=== PATIENT | male | born 1960 | race Caucasian/White ===

== ENCOUNTER 2020-12-02 06:12 | Day surgery (SDC) | payer OTHER, MEDICAID ==
[~2020-12-02] VITALS: Ht 170.2 cm; Wt 93.9 kg
[~2020-12-02 06:12] MED LIST: ASPI1TAB20 PO; GABA300C10 PO; METF-370 PO; METO25TA5 PO; OXYC325T14 PO; ROSU1TAB13 PO
[2020-12-02] MEDS ORDERED: LIDOCAINE 2% JELLY 11ml (GLYDO) ONE (06:52)
[2020-12-02] MEDS ORDERED: ceFAZolin 1GM/50ML 50 ML IV ONE (07:05)
[2020-12-02] MEDS ORDERED: SUCCINYLCHOLINE CHLORIDE 20 MG/ML 10ML VIAL IV ONE (07:30)
[2020-12-02] MEDS ORDERED: MIDAZOLAM HCL 2MG/2ML 2ml VIAL (1mg/ml) ONE (07:33)
[2020-12-02] MEDS ORDERED: fentaNYL CITRATE 100 MCG/2 ML VL ONE (07:33)
[2020-12-02] MEDS ORDERED: PHENYLEPHRINE HCL 10 MG/ML VL ONE (08:13)
[2020-12-02] MEDS ORDERED: LIDOCAINE 2% (LOCAL ANESTH.) PF 5ml SDV ONE (08:13)
[2020-12-02] MEDS ORDERED: ePHEDrine SULFATE 50 MG/ML AMP ONE (08:13)
[2020-12-02] MEDS ORDERED: ONDANSETRON HCL 4 MG/2 ML VIAL ONE (08:13)
[2020-12-02] MEDS ORDERED: PROPOFOL 10 MG/ML 20 ML IV ONE (08:13)
[2020-12-02] MEDS ORDERED: HYDROmorphone HCL 2 MG/ML VL IV PRN (08:30)
[2020-12-02] MEDS ORDERED: ONDANSETRON HCL 4 MG/2 ML VIAL IV PRN (08:30)
[2020-12-02 09:10] VITALS: BP 140/81
== END 2020-12-02 09:10 | disposition home or self-care (01) ==
LOC: SUR 06:12
PROVIDERS: ATTEND Urology
DX: N35.919 Unspecified urethral stricture, male, unspecified site (principal); E78.00 Pure hypercholesterolemia, unspecified; E11.9 Type 2 diabetes mellitus without complications; I10 Essential (primary) hypertension; E11.40 Type 2 diabetes mellitus with diabetic neuropathy, unspecified; I25.2 Old myocardial infarction; F17.200 Nicotine dependence, unspecified, uncomplicated; Z20.822 Contact with and (suspected) exposure to COVID-19; Z98.890 Other specified postprocedural states; Z68.32 Body mass index [BMI] 32.0-32.9, adult
CPT/HCPCS: 52276; 82962; J0330; J0690; J1170; J2001; J2250; J2370; J2405; J2704; J3010; U0003

== ENCOUNTER 2020-12-02 17:10 | Emergency (ER) | payer OTHER, MEDICAID ==
[~2020-12-02] VITALS: Ht 170.2 cm; Wt 93.9 kg
[~2020-12-02 17:10] MED LIST changes: +ASPI-231 PO; -ASPI1TAB20 PO
[2020-12-02 17:13] VITALS: BP 137/92
[2020-12-02] MEDS ORDERED: KETOROLAC TROMETH 60MG/2ML VIAL IM ONE (19:00)
== END 2020-12-02 19:40 | disposition home or self-care (01) ==
LOC: ER 17:10
DX: N99.114 Postprocedural urethral stricture, male, unspecified (principal)
CPT/HCPCS: 96372; 99283; J1885

== ENCOUNTER → 2022-06-13 | Outpatient (CLI) | payer OTHER, MEDICAID ==
[~2022-06-13] VITALS: Ht 170.2 cm; Wt 97.5 kg
[~2022-06-13] MED LIST changes: -ASPI-231 PO; +ASPI1TAB20 PO; +ROSU1TAB15 PO
== END | disposition home or self-care (01) ==
LOC: LAB 14:40 → EDSTATUS 06-15 13:30
PROVIDERS: ATTEND Urology
DX: Z20.822 Contact with and (suspected) exposure to COVID-19 (principal)

== ENCOUNTER → 2022-09-07 | Day surgery (SDC) | payer OTHER ==
[~2022-09-07] VITALS: Ht 172.7 cm; Wt 98.4 kg
[~2022-09-07] MED LIST changes: -ASPI1TAB20 PO; +BUPIVACAINE 0.25% INJ 50ML VIAL ONE; +DexAMETHasone SOD PHOS 10MG/1ML VIAL INJ ONE; +LABETALOL HCL 5 MG/ML 4ML SYRINGE IV PRN; +LIDOCAINE 2% JELLY 11ml (GLYDO) ONE; +LIDOCAINE W/ EPINEPHRINE 2% INJ 20ML VIAL ONE; +MEPERIDINE HCL (50 MG/ML) 1 ML VIAL ONE; +MIDAZOLAM HCL 2MG/2ML 2ml VIAL (1mg/ml) IV PRN; +MIDAZOLAM HCL 2MG/2ML 2ml VIAL (1mg/ml) ONE; +MORPHINE SULFATE 4 MG/ML SYR/VIAL IV PRN; +ONDANSETRON HCL 4 MG/2 ML VIAL IV PRN; -ROSU1TAB13 PO; +ceFAZolin 1GM VL ONE; +ePHEDrine SULFATE 50 MG/ML AMP IV PRN; +fentaNYL CITRATE 100 MCG/2 ML VL ONE; +fentaNYL CITRATE 5 ML ONE
[2022-09-07] MEDS: HYDROmorphone HCL 2 MG/ML VL/or syr IV PRN ×3 (10:52→11:15)
[2022-09-07 12:10] VITALS: BP 146/84
== END | disposition home or self-care (01) ==
LOC: SUR 07:45
PROVIDERS: ATTEND Urology
DX: N52.31 Erectile dysfunction following radical prostatectomy (principal); I10 Essential (primary) hypertension; E78.5 Hyperlipidemia, unspecified; E11.9 Type 2 diabetes mellitus without complications; Z79.84 Long term (current) use of oral hypoglycemic drugs; Z87.891 Personal history of nicotine dependence; Z88.5 Allergy status to narcotic agent; Z79.899 Other long term (current) drug therapy; Z98.890 Other specified postprocedural states; Z20.822 Contact with and (suspected) exposure to COVID-19
CPT/HCPCS: 54401; 82962; C1813; J0690; J1100; J1170; J2175; J2250; J3010; J3490; U0003

== ENCOUNTER 2022-09-29 12:52 | Inpatient (IN) | payer OTHER, MEDICAID ==
[~2022-09-29] VITALS: Ht 170.2 cm; Wt 97.5 kg
[~2022-09-29 12:52] MED LIST changes: -BUPIVACAINE 0.25% INJ 50ML VIAL ONE; -DexAMETHasone SOD PHOS 10MG/1ML VIAL INJ ONE; -LABETALOL HCL 5 MG/ML 4ML SYRINGE IV PRN; -LIDOCAINE 2% JELLY 11ml (GLYDO) ONE; -LIDOCAINE W/ EPINEPHRINE 2% INJ 20ML VIAL ONE; -MEPERIDINE HCL (50 MG/ML) 1 ML VIAL ONE; -MIDAZOLAM HCL 2MG/2ML 2ml VIAL (1mg/ml) IV PRN; -MIDAZOLAM HCL 2MG/2ML 2ml VIAL (1mg/ml) ONE; -MORPHINE SULFATE 4 MG/ML SYR/VIAL IV PRN; -ONDANSETRON HCL 4 MG/2 ML VIAL IV PRN; -ceFAZolin 1GM VL ONE; -ePHEDrine SULFATE 50 MG/ML AMP IV PRN; -fentaNYL CITRATE 100 MCG/2 ML VL ONE; -fentaNYL CITRATE 5 ML ONE
[2022-09-29 13:58] LABS: Basophils # (auto) 0.1 10 ^3/uL (0-0.2); Basophils % (auto) 0.8 % (0.0-2.0); Eosinophils # (auto) 0.1 10 ^3/uL (0-0.8); Eosinophils % (auto) 1.3 % (0.0-7.0); Hematocrit 42.1 % (41.0-53.0); Hemoglobin 14.4 g/dL (13.5-17.5); Lymphocytes # (auto) 0.8 10 ^3/uL (0.4-5.4); Mean Corpuscular Hemoglobin 29.6 pg (28.0-32.0); Mean Corpuscular Hgb Conc. 34.2 g/dL (32.0-36.0); Mean Corpuscular Volume 86.7 fL (80.0-100.0); Monocytes # (auto) 0.5 10 ^3/uL (0-1.3); Monocytes % (auto) 6.5 % (0.0-12.0); Neutrophils # (auto) 6.9 10 ^3/uL (1.6-8.6); Neutrophils % (auto) 82.4 % (37.0-80.0); Red Blood Cells 4.86 10^6/uL (4.5-5.90); Red Cell Distribution Width 13.3 % (11.8-14.3); White Blood Cell 8.4 10^3/uL (4.4-10.8)
[2022-09-29 14:29] LABS: Albumin 3.2 g/dL (3.4-5.0); Potassium 4.1 mmol/L (3.5-5.1)
[2022-09-29 14:32] LABS: BUN/Creatinine Ratio 11.4; Bilirubin, Total 0.6 mg/dL (0.2-1.0); Total Protein 7.3 g/dL (6.4-8.2)
[2022-09-29] MEDS ORDERED: LIDOCAINE W/ EPINEPHRINE 2% INJ 20ML VIAL ONE (15:44)
[2022-09-29] MEDS ORDERED: LIDOCAINE 1%HCL (LOCAL ANESTH) 10 ML MDV ONE (15:44)
[2022-09-29] MEDS ORDERED: ceFAZolin 1GM VL ONE (15:45)
[2022-09-29] MEDS ORDERED: DexAMETHasone SOD PHOS 10MG/1ML VIAL INJ ONE (15:47)
[2022-09-29] MEDS ORDERED: fentaNYL CITRATE 100 MCG/2 ML VL ONE (15:47)
[2022-09-29] MEDS ORDERED: MEPERIDINE HCL (50 MG/ML) 1 ML VIAL ONE (15:47)
[2022-09-29] MEDS ORDERED: PROPOFOL 10 MG/ML 20 ML IV ONE (15:47)
[2022-09-29] MEDS ORDERED: MIDAZOLAM HCL 2MG/2ML 2ml VIAL (1mg/ml) ONE (15:47)
[2022-09-29] MEDS ORDERED: LABETALOL HCL 5 MG/ML 4ML SYRINGE IV PRN (16:15)
[2022-09-29] MEDS ORDERED: HYDROmorphone HCL 2 MG/ML VL/or syr IV PRN (16:15)
[2022-09-29] MEDS ORDERED: ePHEDrine SULFATE 50 MG/ML AMP IV PRN (16:15)
[2022-09-29] MEDS ORDERED: hydrALAZINE HCL 20 MG/ML VL IV PRN (16:15)
[2022-09-29] MEDS ORDERED: ONDANSETRON HCL 4 MG/2 ML VIAL IV PRN (16:15)
[2022-09-29] MEDS ORDERED: MIDAZOLAM HCL 2MG/2ML 2ml VIAL (1mg/ml) IV PRN (16:15)
[2022-09-29] MEDS ORDERED: ACCU-CHEK COMFORT CURVE STRIP VI ONE (16:15)
[2022-09-29] MEDS ORDERED: ceFAZolin 1GM/50ML 100 ML IV ONE (16:17)
[2022-09-29] MEDS ORDERED: MORPHINE SULFATE 4 MG/ML SYR/VIAL IV PRN (16:30)
[2022-09-29] MEDS ORDERED: NEOMYCIN-BACITRACIN-POLYM 15GM TOP OINT TOP ONE (17:14)
[2022-09-29] MEDS ORDERED: PIPERACILLIN-TAZOB 3.375GM 100 ML IV ONE (17:45)
[2022-09-29] MEDS ORDERED: MORPHINE SULFATE INJ 2 MG/ml SYRG IV PRN (17:45)
[2022-09-29] MEDS ORDERED: NITROGLYCERIN 0.4 MG SL TAB SL PRN (17:45)
[2022-09-29] MEDS ORDERED: ALBUTEROL MEDNEB 2.5 mg/3ml NEB ONE (17:52)
[2022-09-29] MEDS ORDERED: ALBUTEROL SULF 2.5 MG/0.5ML(0.5%) NEB SOLN NEB ONE (18:00)
[2022-09-29] MEDS ORDERED: HYDROmorphone HCL 2 MG/ML VL/or syr IV ONE ×2 (18:15→18:25)
[2022-09-29] MEDS ORDERED: TAMS0.4C36 PO (21:05)
[2022-09-29] MEDS ORDERED: ASPI-325 PO (21:05)
[2022-09-29 22:00] VITALS: BP 163/91
[2022-09-30] VITALS (7 sets, daily range): BP systolic 100–145; BP diastolic 71–80
[2022-09-30] MEDS ORDERED: hydrALAZINE HCL 20 MG/ML VL IV PRN (01:15)
[2022-09-30] MEDS: MORPHINE SULFATE INJ 2 MG/ml SYRG IV PRN ×3 (01:20→13:45)
[2022-09-30] MEDS: HYDROcodone-ACET 5/325MG TAB PO PRN ×4 (03:11→21:48)
[2022-09-30] MEDS: METOPROLOL TARTRATE 25 MG TAB PO SCH ×2 (09:29→21:48)
[2022-09-30] MEDS: DOXYCYCLINE 100MG/250ML 250 ML IV SCH ×2 (13:44→21:49)
[2022-10-01] VITALS (8 sets, daily range): BP systolic 128–143; BP diastolic 79–84
[2022-10-01] MEDS: HYDROcodone-ACET 5/325MG TAB PO PRN ×2 (03:29→20:57)
[2022-10-01] MEDS ORDERED: MORPHINE SULFATE INJ 2 MG/ml SYRG IV ONE (05:00)
[2022-10-01] MEDS ORDERED: ALBUTEROL SULF 2.5 MG/0.5ML(0.5%) NEB SOLN NEB PRN (05:00)
[2022-10-01 05:37] LABS: Urine Bacteria MOD /hpf (None Seen); Urine Blood TRACE /uL (Negative); Urine Hyaline Cast FEW /lpf (0 - 2); Urine Mucus FEW (None Seen); Urine Specific Gravity 1.014 (1.001-1.035); Urine WBC 9 /hpf (0 - 3)
[2022-10-01] MEDS: DOXYCYCLINE 100MG/250ML 250 ML IV SCH ×2 (09:24→22:01)
[2022-10-01] MEDS: METOPROLOL TARTRATE 25 MG TAB PO SCH ×2 (09:25→21:55)
[2022-10-01] MEDS ORDERED: MORPHINE SULFATE 4 MG/ML SYR/VIAL IV PRN (12:45)
[2022-10-02 09:19] VITALS: BP 115/75
[2022-10-02] MEDS: DOXYCYCLINE 100MG/250ML 250 ML IV SCH (09:30)
[2022-10-02] MEDS: METOPROLOL TARTRATE 25 MG TAB PO SCH (09:30)
[2022-10-02 09:50] LABS: Hepatitis B Surface Antibody Negative (Negative)
[2022-10-02] MEDS ORDERED: levoFLOXacin 750MG 150 ML IV SCH (12:00)
[2022-10-02] MEDS ORDERED: CEPH500C PO ×2 (12:23)
[2022-10-02] MEDS ORDERED: HYDR-4902 PO (12:23)
[2022-10-02 12:35] VITALS: BP 140/75
[2022-10-02] MEDS ORDERED: LEVO750T8 PO (13:11)
[2022-10-02 13:33] LABS: Hepatitis A Ab IgM Negative
[2022-10-02 13:49] VITALS: BP 140/75
== END 2022-10-02 15:02 | disposition home or self-care (01) | DRG 728 ==
LOC: ER 12:52 → OVERFLOW 17:47 → WEST WING 20:10
PROVIDERS: ADMIT Anesthesiology; ATTEND Family Medicine
PROC: 0V9500Z Drainage of Scrotum with Drainage Device, Open Approach (ICD-10-PCS; principal; 2022-09-29 16:22)
DX: N49.2 Inflammatory disorders of scrotum (principal); E11.9 Type 2 diabetes mellitus without complications; E78.00 Pure hypercholesterolemia, unspecified; I10 Essential (primary) hypertension; Z90.79 Acquired absence of other genital organ(s); Z20.822 Contact with and (suspected) exposure to COVID-19; Z79.84 Long term (current) use of oral hypoglycemic drugs; B96.5 Pseudomonas (aeruginosa) (mallei) (pseudomallei) as the cause of diseases classified elsewhere
CPT/HCPCS: 36415; 71045; 76870; 80053; 81001; 82962; 83036; 85025; 86706; 86709; 87040; 87070; 87075; 87077; 87086; 87186; 87205; 87426; 94640; 96374; 96376; G0378; J0690; J1100; J1956; J2001; J2250; J2543; J2704; J3490

== ENCOUNTER 2022-10-23 16:34 | Observation (INO) | payer OTHER, MEDICAID ==
[~2022-10-23] VITALS: Ht 172.7 cm; Wt 94.1 kg
[~2022-10-23 16:34] MED LIST changes: +ASPI-325 PO; +HYDR-4902 PO; +LEVO750T8 PO; +TAMS0.4C36 PO
[2022-10-23 18:49] LABS: Basophils # (auto) 0.1 10 ^3/uL (0-0.2); Basophils % (auto) 1.5 % (0.0-2.0); Eosinophils # (auto) 0.3 10 ^3/uL (0-0.8); Eosinophils % (auto) 5.8 % (0.0-7.0); Hematocrit 42.6 % (41.0-53.0); Hemoglobin 14.3 g/dL (13.5-17.5); Lymphocytes # (auto) 1.3 10 ^3/uL (0.4-5.4); Lymphocytes % (auto) 25.5 % (10.0-50.0); Mean Corpuscular Hemoglobin 29.1 pg (28.0-32.0); Mean Corpuscular Hgb Conc. 33.7 g/dL (32.0-36.0); Mean Corpuscular Volume 86.4 fL (80.0-100.0); Monocytes # (auto) 0.5 10 ^3/uL (0-1.3); Monocytes % (auto) 10.7 % (0.0-12.0); Neutrophils # (auto) 2.8 10 ^3/uL (1.6-8.6); Neutrophils % (auto) 56.5 % (37.0-80.0); Nucleated Red Blood Cells % 0.1 %; Red Blood Cells 4.93 10^6/uL (4.5-5.90); Red Cell Distribution Width 13.7 % (11.8-14.3)
[2022-10-23 19:03] LABS: INR 1.03 (0.9-1.15)
[2022-10-23] MEDS ORDERED: fentaNYL CITRATE 100 MCG/2 ML VL ONE (19:11)
[2022-10-23] MEDS ORDERED: LIDOCAINE 2% (LOCAL ANESTH.) PF 5ml SDV ONE (19:12)
[2022-10-23] MEDS ORDERED: ONDANSETRON HCL 4 MG/2 ML VIAL ONE (19:12)
[2022-10-23] MEDS ORDERED: MIDAZOLAM HCL 2MG/2ML 2ml VIAL (1mg/ml) ONE (19:12)
[2022-10-23 19:14] LABS: Albumin 3.5 g/dL (3.4-5.0); Calcium 9.2 mg/dL (8.5-10.1); Potassium 3.9 mmol/L (3.5-5.1)
[2022-10-23 19:20] LABS: BUN/Creatinine Ratio 12.6; Bilirubin, Total 0.5 mg/dL (0.2-1.0); Total Protein 7.9 g/dL (6.4-8.2)
[2022-10-23] MEDS ORDERED: ceFAZolin 1GM/50ML 100 ML IV ONE (19:20)
[2022-10-23] MEDS ORDERED: NITROGLYCERIN 0.4 MG SL TAB SL PRN (19:30)
[2022-10-23] MEDS ORDERED: MORPHINE SULFATE INJ 2 MG/ml SYRG IV PRN (19:30)
[2022-10-23] MEDS ORDERED: ceFAZolin 1GM VL ONE (20:00)
[2022-10-23] MEDS ORDERED: PROPOFOL 10 MG/ML 20 ML IV ONE (20:24)
[2022-10-23] MEDS ORDERED: ONDANSETRON HCL 4 MG/2 ML VIAL IV PRN (20:30)
[2022-10-23] MEDS ORDERED: HYDROmorphone HCL 2 MG/ML VL/or syr IV PRN ×2 (20:30)
[2022-10-23] MEDS: HYDROmorphone HCL 2 MG/ML VL/or syr ONE ×4 (20:44→21:14)
[2022-10-23 20:45] VITALS: BP_SYST 127; BP_SYST 159; BP_DIAS 77; BP_DIAS 98
[2022-10-24] VITALS (8 sets, daily range): BP systolic 112–131; BP diastolic 73–80
[2022-10-24] MEDS: HYDROmorphone HCL 2 MG/ML VL/or syr IV PRN ×4 (00:58→12:49)
[2022-10-24] MEDS ORDERED: METR500T14 PO (02:28)
[2022-10-24] MEDS: CIPROFLOXACIN 400MG/200ML 200 ML IV SCH ×2 (08:43→21:24)
[2022-10-24] MEDS ORDERED: FUROSEMIDE 20 MG/2 ML VIAL IV ONE (15:45)
[2022-10-24] MEDS ORDERED: DEXTROSE (50%) 50ML SYRG IV PRN (16:15)
[2022-10-24] MEDS: InsuLIN REG 1unit/0.01ml Soln (100units/ml) SC SCH ×2 (17:00→21:30)
[2022-10-24] MEDS: ACCU-CHEK COMFORT CURVE STRIP VI SCH ×2 (18:53→21:25)
[2022-10-24] MEDS: oxyCODONE HCL 5MG TAB PO PRN (18:57)
[2022-10-24] MEDS ORDERED: ALBUTEROL SULF 2.5 MG/0.5ML(0.5%) NEB SOLN NEB PRN (19:45)
[2022-10-24] MEDS ORDERED: ALBUTEROL SULF 2.5 MG/0.5ML(0.5%) NEB SOLN NEB SCH (22:00)
[2022-10-25] MEDS: oxyCODONE HCL 5MG TAB PO PRN ×3 (02:45→14:10)
[2022-10-25 03:56] VITALS: BP 130/68
[2022-10-25] MEDS: ACCU-CHEK COMFORT CURVE STRIP VI SCH ×2 (05:44→14:17)
[2022-10-25] MEDS: InsuLIN REG 1unit/0.01ml Soln (100units/ml) SC SCH ×2 (05:51→14:18)
[2022-10-25 08:05] VITALS: BP 130/68
[2022-10-25 09:00] VITALS: BP 116/65
[2022-10-25] MEDS: CIPROFLOXACIN 400MG/200ML 200 ML IV SCH (10:17)
[2022-10-25 13:00] VITALS: BP 132/78
== END 2022-10-25 16:14 | disposition home health service (06) ==
LOC: ER 16:34 → OVERFLOW 19:32 → WEST WING 21:25
PROVIDERS: ADMIT Urology; ATTEND Urology
DX: T83.61XA Infection and inflammatory reaction due to implanted penile prosthesis, initial encounter (principal); Z20.822 Contact with and (suspected) exposure to COVID-19; N48.89 Other specified disorders of penis; I10 Essential (primary) hypertension; T81.30XA Disruption of wound, unspecified, initial encounter; E11.9 Type 2 diabetes mellitus without complications; I08.0 Rheumatic disorders of both mitral and aortic valves; N49.2 Inflammatory disorders of scrotum; E78.5 Hyperlipidemia, unspecified; N99.820 Postprocedural hemorrhage of a genitourinary system organ or structure following a genitourinary system procedure; Z90.79 Acquired absence of other genital organ(s); Z79.84 Long term (current) use of oral hypoglycemic drugs; Z79.82 Long term (current) use of aspirin; Z87.891 Personal history of nicotine dependence; Z79.899 Other long term (current) drug therapy; Z98.890 Other specified postprocedural states; Y83.1 Surgical operation with implant of artificial internal device as the cause of abnormal reaction of the patient, or of later complication, without mention of misadventure at the time of the procedure
CPT/HCPCS: 36415; 54406; 80053; 82962; 85025; 85610; 87070; 87075; 87077; 87186; 87205; 87426; 88300; 93306; 96365; 96366; 96375; 96376; 99284; G0378; J0690; J0744; J1170; J1815; J1940; J2001; J2250; J2270; J2405; J2704; J3010; J7030